=== PATIENT | male | born 1955 | race Caucasian/White ===

== ENCOUNTER 2024-05-04 18:10 | Inpatient (IN) | payer OTHER ==
[~2024-05-04] VITALS: Ht 180.3 cm; Wt 77.5 kg
[2024-05-05] VITALS (9 sets, daily range): BP systolic 98–151; BP diastolic 64–96; PULSE 79–109; RESP 17–23; TEMP 97.2–98.4; O2SAT 94–98
[2024-05-05] MEDS ORDERED: ONDANSETRON HCL 4 MG/2 ML VIAL IV PRN (01:15)
[2024-05-05] MEDS ORDERED: ACETAMINOPHEN 325 MG TAB PO PRN (01:15)
[2024-05-05] MEDS ORDERED: HYDROcodone-ACET 5/325MG TAB PO PRN (01:15)
[2024-05-05 05:24] LABS: Basophils # (auto) 0 10 ^3/uL (0-0.2); Basophils % (auto) 0.4 % (0.0-2.0); Eosinophils # (auto) 0.1 10 ^3/uL (0-0.8); Eosinophils % (auto) 1.1 % (0.0-7.0); Hematocrit 43.3 % (41.0-53.0); Hemoglobin 14.4 g/dL (13.5-17.5); Lymphocytes # (auto) 0.7 10 ^3/uL (0.4-5.4); Lymphocytes % (auto) 9.7 % (10.0-50.0); Mean Corpuscular Hemoglobin 32.7 pg (28.0-32.0); Mean Corpuscular Hgb Conc. 33.4 g/dL (32.0-36.0); Mean Corpuscular Volume 98.2 fL (80.0-100.0); Monocytes # (auto) 0.4 10 ^3/uL (0-1.3); Monocytes % (auto) 5.6 % (0.0-12.0); Neutrophils # (auto) 5.6 10 ^3/uL (1.6-8.6); Neutrophils % (auto) 83.2 % (37.0-80.0); Nucleated Red Blood Cells % 0.5 %; Platelet Count (auto) 103 10^3/uL (140-450); Red Blood Cells 4.41 10^6/uL (4.5-5.90); Red Cell Distribution Width 19.2 % (11.8-14.3); White Blood Cell 6.7 10^3/uL (4.4-10.8)
[2024-05-05 05:29] LABS: Anion Gap 6 (5-15); Carbon Dioxide 29 mmol/L (20-31); Chloride 105 mmol/L (98-107); Potassium 3.4 mmol/L (3.5-5.1); Sodium 140 mmol/L (136-145)
[2024-05-05 05:31] LABS: Calcium 8.7 mg/dL (8.7-10.4)
[2024-05-05 05:36] LABS: BUN/Creatinine Ratio 21.6 (10.0-20.0); Blood Urea Nitrogen 30 mg/dL (9-23); Glucose 126 mg/dL (74-106); INR 1.32 (0.9-1.15); Prothrombin Time 13.7 sec (9.3-11.8)
[2024-05-05] MEDS: FUROSEMIDE 40 MG/4 ML VIAL IV SCH (06:00)
[2024-05-05 06:43] LABS: Platelet Estimate Decreased
[2024-05-05 06:44] LABS: Anisocytosis Slight; Ovalocytes FEW
[2024-05-05] MEDS: FAMOTIDINE 20 MG TAB PO SCH (10:35)
[2024-05-05] MEDS: ENOXAPARIN SOD 40 MG/0.4 ML SYRINGE SC SCH (10:35)
[2024-05-05] MEDS: ASPirin 81 mg TAB PO SCH (10:35)
[2024-05-05] MEDS: ATORVASTATIN 20 MG TAB PO SCH (21:17)
[2024-05-05] MEDS: POTASSIUM CHL 10 Meq TABLET PO SCH (21:17)
[2024-05-06] VITALS (8 sets, daily range): BP systolic 126–145; BP diastolic 74–99; PULSE 77–115; RESP 18–19; TEMP 97.3–98.8; O2SAT 93–96
[2024-05-06 05:27] LABS: Basophils # (auto) 0 10 ^3/uL (0-0.2); Basophils % (auto) 0.5 % (0.0-2.0); Eosinophils # (auto) 0.1 10 ^3/uL (0-0.8); Eosinophils % (auto) 2.5 % (0.0-7.0); Lymphocytes # (auto) 0.8 10 ^3/uL (0.4-5.4); Lymphocytes % (auto) 12.8 % (10.0-50.0); Mean Corpuscular Hemoglobin 33.3 pg (28.0-32.0); Mean Corpuscular Hgb Conc. 34.1 g/dL (32.0-36.0); Mean Corpuscular Volume 97.5 fL (80.0-100.0); Monocytes # (auto) 0.4 10 ^3/uL (0-1.3); Monocytes % (auto) 6.9 % (0.0-12.0); Neutrophils # (auto) 4.7 10 ^3/uL (1.6-8.6); Neutrophils % (auto) 77.3 % (37.0-80.0); Nucleated Red Blood Cells % 0.4 %; Platelet Count (auto) 113 10^3/uL (140-450); Red Blood Cells 4.51 10^6/uL (4.5-5.90); Red Cell Distribution Width 18.9 % (11.8-14.3); White Blood Cell 6.1 10^3/uL (4.4-10.8)
[2024-05-06 05:41] LABS: INR 1.34 (0.9-1.15); Partial Thromboplastin Time 30.8 SEC (24.5-34.5); Prothrombin Time 13.9 sec (9.3-11.8)
[2024-05-06 05:43] LABS: Alanine Aminotransferase 60 U/L (7-40); Albumin 3.2 g/dL (3.2-4.8); Alkaline Phosphatase 124 U/L (46-116); Anion Gap 7 (5-15); Aspartate Aminotransferase 56 U/L (13-40); BUN/Creatinine Ratio 21.1 (10.0-20.0); Bilirubin, Total 1.7 mg/dL (0.2-1.0); Blood Urea Nitrogen 26 mg/dL (9-23); Calcium 9.2 mg/dL (8.7-10.4); Carbon Dioxide 34 mmol/L (20-31); Chloride 99 mmol/L (98-107); Glucose 110 mg/dL (74-106); Potassium 3.1 mmol/L (3.5-5.1); Sodium 140 mmol/L (136-145)
[2024-05-06] MEDS: CILOSTAZOL 100 MG TAB PO SCH (21:57)
[2024-05-07] VITALS (8 sets, daily range): BP systolic 101–144; BP diastolic 56–91; PULSE 74–110; RESP 18–21; TEMP 97–98; O2SAT 91–97
[2024-05-07 06:47] LABS: Anion Gap 5 (5-15); Carbon Dioxide 37 mmol/L (20-31); Chloride 98 mmol/L (98-107); Potassium 3.1 mmol/L (3.5-5.1); Sodium 140 mmol/L (136-145)
[2024-05-07 06:53] LABS: BUN/Creatinine Ratio 21.8 (10.0-20.0); Blood Urea Nitrogen 26 mg/dL (9-23); Glucose 122 mg/dL (74-106)
[2024-05-07 07:02] LABS: Basophils # (auto) 0 10 ^3/uL (0-0.2); Basophils % (auto) 0.9 % (0.0-2.0); Eosinophils # (auto) 0.2 10 ^3/uL (0-0.8); Eosinophils % (auto) 3.8 % (0.0-7.0); Hematocrit 42.8 % (41.0-53.0); Hemoglobin 14.5 g/dL (13.5-17.5); Lymphocytes # (auto) 0.7 10 ^3/uL (0.4-5.4); Lymphocytes % (auto) 12.3 % (10.0-50.0); Mean Corpuscular Hemoglobin 32.6 pg (28.0-32.0); Mean Corpuscular Hgb Conc. 33.9 g/dL (32.0-36.0); Mean Corpuscular Volume 96.3 fL (80.0-100.0); Monocytes # (auto) 0.5 10 ^3/uL (0-1.3); Neutrophils # (auto) 4.2 10 ^3/uL (1.6-8.6); Nucleated Red Blood Cells % 0.4 %; Platelet Count (auto) 118 10^3/uL (140-450); Red Blood Cells 4.45 10^6/uL (4.5-5.90); Red Cell Distribution Width 19.1 % (11.8-14.3); White Blood Cell 5.7 10^3/uL (4.4-10.8)
[2024-05-07] MEDS ORDERED: POTA-211 PO (13:13)
[2024-05-07] MEDS ORDERED: ASPI-325 PO (13:13)
[2024-05-07] MEDS ORDERED: CILO100T3 PO (13:13)
[2024-05-07] MEDS ORDERED: CARV-214 PO (13:13)
[2024-05-07] MEDS ORDERED: FURO40TA4 PO (13:13)
[2024-05-07] MEDS ORDERED: ATOR20TA50 PO (13:13)
[2024-05-07] MEDS ORDERED: LISI-275 PO (13:13)
[2024-05-07] MEDS: FUROSEMIDE 40 MG TAB PO SCH (17:08)
[2024-05-07] MEDS: POTASSIUM CHL 20 Meq TABLET PO ONE (17:08)
[2024-05-08] VITALS (12 sets, daily range): BP systolic 116–140; BP diastolic 61–91; PULSE 78–99; RESP 14–20; TEMP 97.3–98.6; O2SAT 92–94
[2024-05-08] MEDS: CARVEDILOL 3.125 MG TAB PO SCH (00:09)
[2024-05-08] MEDS: HEPARIN SODIUM (PORCINE) 5000 UNITS/ML 1ML VIAL ONE (12:37)
[2024-05-08] MEDS: VERAPAMIL 2.5MG/ML INJ 2ML VIAL IV ONE (12:37)
[2024-05-08] MEDS: LIDOCAINE 2%HCL (LOCAL ANESTH.) INJ 20ML MDV ONE ×2 (12:38→12:48)
[2024-05-08] MEDS: MIDAZOLAM HCL 2MG/2ML 2ml VIAL (1mg/ml) ONE (12:38)
[2024-05-08] MEDS: fentaNYL CITRATE 100 MCG/2 ML VL ONE (12:38)
[2024-05-08] MEDS: FUROSEMIDE 20 MG/2 ML VIAL ONE (13:25)
[2024-05-08 15:54] LABS: Alanine Aminotransferase 50 U/L (7-40); Albumin 3.5 g/dL (3.2-4.8); Alkaline Phosphatase 125 U/L (46-116); Anion Gap 1 (5-15); Aspartate Aminotransferase 42 U/L (13-40); BUN/Creatinine Ratio 13.4 (10.0-20.0); Bilirubin, Total 1.7 mg/dL (0.2-1.0); Blood Urea Nitrogen 16 mg/dL (9-23); Calcium 8.9 mg/dL (8.7-10.4); Carbon Dioxide 32 mmol/L (20-31); Chloride 102 mmol/L (98-107); Glucose 170 mg/dL (74-106); Potassium 3.4 mmol/L (3.5-5.1); Total Protein 6.5 g/dL (5.7-8.2)
[2024-05-08 16:02] LABS: Sodium 135 mmol/L (136-145)
[2024-05-09] VITALS (7 sets, daily range): BP systolic 102–125; BP diastolic 66–89; PULSE 77–100; RESP 17–18; TEMP 97.1–97.5; O2SAT 92–98
[2024-05-09 18:12] LABS: Basophils # (auto) 0.1 10 ^3/uL (0-0.2); Basophils % (auto) 1.1 % (0.0-2.0); Eosinophils # (auto) 0.5 10 ^3/uL (0-0.8); Eosinophils % (auto) 7.8 % (0.0-7.0); Hematocrit 47.5 % (41.0-53.0); Hemoglobin 15.8 g/dL (13.5-17.5); Lymphocytes # (auto) 0.9 10 ^3/uL (0.4-5.4); Lymphocytes % (auto) 12.9 % (10.0-50.0); Mean Corpuscular Hgb Conc. 33.3 g/dL (32.0-36.0); Mean Corpuscular Volume 96.4 fL (80.0-100.0); Monocytes # (auto) 0.6 10 ^3/uL (0-1.3); Monocytes % (auto) 8.6 % (0.0-12.0); Neutrophils # (auto) 4.7 10 ^3/uL (1.6-8.6); Neutrophils % (auto) 69.6 % (37.0-80.0); Nucleated Red Blood Cells % 0.3 %; Platelet Count (auto) 168 10^3/uL (140-450); Red Blood Cells 4.93 10^6/uL (4.5-5.90); Red Cell Distribution Width 19.3 % (11.8-14.3); White Blood Cell 6.8 10^3/uL (4.4-10.8)
[2024-05-09 19:05] LABS: Chloride 100 mmol/L (98-107); Potassium 3.6 mmol/L (3.5-5.1); Sodium 135 mmol/L (136-145)
[2024-05-09 19:06] LABS: Anion Gap 8 (5-15); Carbon Dioxide 27 mmol/L (20-31)
[2024-05-09 19:11] LABS: BUN/Creatinine Ratio 12.7 (10.0-20.0); Blood Urea Nitrogen 17 mg/dL (9-23); Glucose 139 mg/dL (74-106)
[2024-05-10 05:00] VITALS: BP 109/71; PULSE 84; RESP 19; O2SAT 97
[2024-05-10 07:08] LABS: Calcium 9.2 mg/dL (8.7-10.4); Chloride 100 mmol/L (98-107); Potassium 3.7 mmol/L (3.5-5.1); Sodium 137 mmol/L (136-145)
[2024-05-10 07:09] LABS: Anion Gap 8 (5-15); Carbon Dioxide 29 mmol/L (20-31)
[2024-05-10 07:14] LABS: BUN/Creatinine Ratio 17.1 (10.0-20.0); Blood Urea Nitrogen 22 mg/dL (9-23); Glucose 132 mg/dL (74-106); Magnesium 1.9 mg/dL (1.6-2.6)
[2024-05-10 08:00] VITALS: PULSE 78
[2024-05-10 09:00] VITALS: BP 83/45; PULSE 89; RESP 92; TEMP 96.6; O2SAT 92
[2024-05-10 16:49] VITALS: BP 101/65; PULSE 80; RESP 18; TEMP 98.3; O2SAT 96
== END 2024-05-10 18:04 | disposition home health service (06) | DRG 286 ==
LOC: CENTRAL 05-05 00:45 → TELE-CENTR 05-05 02:06
PROVIDERS: ADMIT Hospitalist; ATTEND Internal Medicine
PROC: 4A023N7 Measurement of Cardiac Sampling and Pressure, Left Heart, Percutaneous Approach (ICD-10-PCS; principal; 2024-05-08)
PROC: B211YZZ Fluoroscopy of Multiple Coronary Arteries using Other Contrast (ICD-10-PCS; 2024-05-08)
PROC: B215YZZ Fluoroscopy of Left Heart using Other Contrast (ICD-10-PCS; 2024-05-08)
DX: I13.0 Hypertensive heart and chronic kidney disease with heart failure and stage 1 through stage 4 chronic kidney disease, or unspecified chronic kidney disease (principal); I50.43 Acute on chronic combined systolic (congestive) and diastolic (congestive) heart failure; J96.01 Acute respiratory failure with hypoxia; N17.9 Acute kidney failure, unspecified; R18.8 Other ascites; I42.9 Cardiomyopathy, unspecified; E87.5 Hyperkalemia; D69.6 Thrombocytopenia, unspecified; J44.9 Chronic obstructive pulmonary disease, unspecified; E66.9 Obesity, unspecified; N18.9 Chronic kidney disease, unspecified; F15.10 Other stimulant abuse, uncomplicated; E11.51 Type 2 diabetes mellitus with diabetic peripheral angiopathy without gangrene; E11.22 Type 2 diabetes mellitus with diabetic chronic kidney disease; I25.10 Atherosclerotic heart disease of native coronary artery without angina pectoris; I70.8 Atherosclerosis of other arteries; Z79.84 Long term (current) use of oral hypoglycemic drugs; Z87.891 Personal history of nicotine dependence; Z95.5 Presence of coronary angioplasty implant and graft; I25.2 Old myocardial infarction; Z68.23 Body mass index [BMI] 23.0-23.9, adult
CPT/HCPCS: 36415; 71045; 76604; 80048; 80053; 83735; 83880; 85025; 85610; 85730; 93458; 97116; 97163; 97530; 99152; G0378; J2250